=== PATIENT | female | born 1985 | race Two or more races ===

== ENCOUNTER → 2017-01-17 | Outpatient (CLI) | payer OTHER ==
[2014-08-03 04:12] VITALS: BP 121/65
--- NOTE | 2017-01-17 17:00 | KCIC ---
PROCEDURE Maxillofacial bone CT without contrast. HISTORY Chronic sinusitis. TECHNIQUE Computed tomographic images of the maxillofacial bones were obtained without contrast. One or more of the following individualized dose reduction techniques were utilized for this examination: 1. Automated exposure control; 2. Adjustment of the mA and/or kV according to patient size; 3. Use of iterative reconstruction technique. COMPARISON 07/20/2016 FINDINGS There is mild to moderate sphenoid and bilateral maxillary sinus mucosal thickening and moderate to severe bilateral ethmoid sinus and left frontal sinus mucosal thickening, increased compared to the prior study. There are small bilateral maxillary sinus air-fluid levels. There is obstruction of the ostiomeatal units. There is no sinus wall erosion. The mastoid air cells are clear. The temporomandibular joints are intact. The visualized portions of the brain and calvarium are unremarkable. There is minimal nasal septal deviation. IMPRESSION Pansinusitis, slightly increased compared to the prior study. This is likely acute on chronic, given the presence of maxillary sinus air-fluid levels. Electronically signed by: Taylor Lewis (Jan 17, 2017 16:58:41)
== END | disposition home or self-care (01) ==
LOC: KCIC CT 15:18
PROVIDERS: ATTEND Otolaryngology
DX: J32.8 Other chronic sinusitis (principal); J34.2 Deviated nasal septum
CPT/HCPCS: 70486

== ENCOUNTER → 2017-01-18 | Outpatient (CLI) | payer OTHER ==
[2014-08-03 04:12] VITALS: BP 121/65
[2017-01-18 13:49] LABS: BASO # 0.1 x10^3/uL (0.0-0.2); BASO % 1 % (0-3); EOS % 26 % (0-3); HEMATOCRIT 39.3 % (36.0-47.0); HEMOGLOBIN 12.8 g/dL (12.0-15.5); LYMPH # 3.5 x10^3/uL (1.0-4.8); LYMPH % 23 % (24-48); MEAN CORPUSCULAR HEMOGLOBIN 30 pg (25-35); MEAN CORPUSCULAR HGB CONC 33 g/dL (31-37); MEAN CORPUSCULAR VOLUME 93 fL (79-100); MONO % 5 % (0-9); NEUT % 45 % (31-73); PLATELET COUNT 311 x10^3/uL (140-400); RED BLOOD COUNT 4.26 x10^6/uL (3.50-5.40); RED CELL DISTRIBUTION WIDTH 12.9 % (11.5-14.5)
[2017-01-18 14:01] LABS: INR 1.1 (0.8-1.1); PROTHROMBIN TIME PATIENT 13.2 SEC (11.7-14.0)
== END | disposition home or self-care (01) ==
LOC: LAB 13:34
PROVIDERS: ATTEND Otolaryngology
DX: J32.9 Chronic sinusitis, unspecified (principal)
CPT/HCPCS: 36415; 85027; 85610; 85730

== ENCOUNTER → 2017-06-03 | Outpatient (CLI) | payer OTHER ==
[2014-08-03 04:12] VITALS: BP 121/65
[2017-06-03 16:48] LABS: BASO # 0.1 x10^3/uL (0.0-0.2); BASO % 1 % (0-3); EOS % 26 % (0-3); HEMATOCRIT 41.1 % (36.0-47.0); HEMOGLOBIN 13.6 g/dL (12.0-15.5); LYMPH % 27 % (24-48); MEAN CORPUSCULAR HEMOGLOBIN 31 pg (25-35); MEAN CORPUSCULAR HGB CONC 33 g/dL (31-37); MEAN CORPUSCULAR VOLUME 92 fL (79-100); MONO % 5 % (0-9); NEUT % 41 % (31-73); PLATELET COUNT 344 x10^3/uL (140-400); RED BLOOD COUNT 4.46 x10^6/uL (3.50-5.40); RED CELL DISTRIBUTION WIDTH 13.1 % (11.5-14.5); WHITE BLOOD COUNT 14.9 x10^3/uL (4.0-11.0)
[2017-06-03 20:24] LABS: % BASOS 1 % (0-3); % EOS 24 % (0-5); PLT ESTIMATE ADEQUATE (ADEQUATE)
[2017-06-07 12:14] LABS: IGG1 548 mg/dL (248-810); IGG2 887 mg/dL (130-555); IGG3 91 mg/dL (15-102); IGG4 153 mg/dL (2-96); TOTAL IGG 1499 mg/dL (700-1600)
== END | disposition home or self-care (01) ==
LOC: LAB 15:57
PROVIDERS: ATTEND Allergy & Immunology
DX: D64.9 Anemia, unspecified (principal)
CPT/HCPCS: 85007; 85025; 85651